=== PATIENT | female | born 1950 | race Hispanic/Latino ===

== ENCOUNTER 2017-10-29 10:17 | Emergency (ER) | payer SELFPAY ==
[~2017-10-29] VITALS: Ht 172.7 cm; Wt 115.2 kg
[~2017-10-29 10:17] MED LIST: B12 5,000 MCG1 EACH PO; CARVEDILOL3.125 MG PO; DIOVAN HCT 3201 EACH PO; FENOFIBRATE160 MG PO; FERROUS SULFAT325 MG PO; LANTUS 3ML100 UNITS/ SC; LASIX20 MG PO; LEVOTHYROXINE200 MCG PO; NOVOLOG MI100 UNIT/1 SC/PO; OMEPRAZOLE40 MG PO; SYMLINPEN2700 MCG/2 SC; [UNRECOGNIZED DRUG - OTHER] PO
[2017-10-29] MEDS ORDERED: HYDROCODONE/APAP 5MG-325MG TAB PO ONE (10:45)
--- NOTE | 2017-10-29 11:46 | Diagnostic Imaging Report ---
PROCEDURE:X-RAY PELVIS, AP VIEW COMPARISON:None. INDICATIONS:RIGHT POSTERIOR HIP PAIN FINDINGS: Limited by body habitus and demineralization. There are no displaced fractures, dislocations, lytic or blastic lesions. Degenerative changes of the hips and SI joints. The soft-tissues are unremarkable. CONCLUSION: No evidence of acute displaced fracture of the pelvis. If there is high clinical concern for fracture, consider obtaining CT for better evaluation. No evidence of hip dislocation. Dictated by: Shaun Winter M.D. on 10/29/2017 at 11:26 Electronically approved by: Shaun Winter M.D. on 10/29/2017 at 11:26
[2017-10-29 12:02] VITALS: BP 166/66
== END 2017-10-29 12:15 | disposition home or self-care (01) ==
LOC: ER 10:17
DX: S70.01XA Contusion of right hip, initial encounter (principal); W01.0XXA Fall on same level from slipping, tripping and stumbling without subsequent striking against object, initial encounter; Y93.01 Activity, walking, marching and hiking; Y92.238 Other place in hospital as the place of occurrence of the external cause; E11.65 Type 2 diabetes mellitus with hyperglycemia; I10 Essential (primary) hypertension
CPT/HCPCS: 36415; 72170; 82948; 99283

== ENCOUNTER 2018-05-07 15:41 | Inpatient (IN) | payer MEDICARE, OTHER ==
[~2018-05-07] VITALS: Ht 157.5 cm; Wt 123.6 kg
[2018-05-07] MEDS: INSULIN GLARGINE 100 UNITS/ML VIAL SQ SCH (01:00)
[2018-05-07] MEDS: INSULIN ASPART 70/30 100 UNITS/ML VIAL SC SCH (01:00)
--- OUTSIDE RECORDS SUMMARY | 2018-05-07 15:45 | XMS REPORT ---
Author Author [facility] Address Unknown Phone Unavailable Care Team Providers Care [employer] Name Role Phone ERNESTINE PARK Unavailable Unavailable Kym CR Unavailable Unavailable Problems This patient has no known problems. Allergies, Adverse Reactions, Alerts This patient has no known allergies or adverse reactions. Medications This patient has no known medications. Results Test Description Test Time Test Comments Text Results Atomic Results Result Comments US RENAL RETROPERITONEAL COMP 2017-11-20 13:00:00 [place] [address] Patient Name: CLYDE PRATHER MR #: [id number] : 1950 Age/Sex: 67/F Req #: [id number] Adm Physician: Ordered by: ERNESTINE PARK MD Report #: [id number] Location: Room/Bed: Procedure: [id number] US/US RENAL RETROPERITONEAL COMP Exam Date: 11/20/17 Exam Time: 1135 REPORT STATUS: Signed EXAM: Renal Ultrasound INDICATION: COMPARISON: None TECHNIQUE: Transverse and longitudinal images of the kidneys and bladder were obtained. FINDINGS: Right Kidney: Size: 12.0 cm, right renal cortex 1.7 cm. Appearance: Normal echogenicity. Collecting system: No hydronephrosis Stones: None Cyst/Mass: None Left Kidney: Size: 10.6 cm, left renal cortex 1.5 cm. Appearance: Normal echogenicity. Collecting system: No hydronephrosis Stones: None Cyst/Mass: 4.8 x 4.0 x 5.0 cm mostly exophytic cystic, anechoic lesion in the mid to inferior aspect Bladder: No focal lesions. No wall thickening. IMPRESSION: 1. Normal bilateral renal size and echogenicity. No hydronephrosis or obstruction. 2. 5.0 cm simple appearing cyst in the mid to inferior left kidney. Signed by: Dr. Tad Brannon M.D. on 11/20/2017 1:03 PM Dictated By: TAD BRANNON MD 07 Transcribed By: KAIN on 11/21/171507 COPY TO: ERNESTINE PARK MD US PELVIC (NON OB) DUARTE OR F/U 2017-11-20 13:00:00 [place] [address] Patient Name: CLYDE PRATHER MR #: [id number] : 1950 Age/Sex: 67/F Req #: [id number] Adm Physician: Ordered by: ERNESTINE PARK MD Report #: [id number] Location: Room/Bed: Procedure: [id number] US/US PELVIC (NON OB) DUARTE OR F/U Exam Date: 11/20/17 Exam Time: 1135 REPORT STATUS: Signed EXAM: Renal Ultrasound INDICATION: COMPARISON: None TECHNIQUE: Transverse and longitudinal images of the kidneys and bladder were obtained. FINDINGS: Right Kidney: Size: 12.0 cm, right renal cortex 1.7 cm. Appearance: Normal echogenicity. Collecting system: No hydronephrosis Stones: None Cyst/Mass: None Left Kidney: Size: 10.6 cm, left renal cortex 1.5 cm. Appearance: Normal echogenicity. Collecting system: No hydronephrosis Stones: None Cyst/Mass: 4.8 x 4.0 x 5.0 cm mostly exophytic cystic, anechoic lesion in the mid to inferior aspect Bladder: No focal lesions. No wall thickening. IMPRESSION: 1. Normal bilateral renal size and echogenicity. No hydronephrosis or obstruction. 2. 5.0 cm simple appearing cyst in the mid to inferior left kidney. Signed by: Dr. Tad Brannon M.D. on 11/20/2017 1:03 PM Dictated By: TAD BRANNON MD 07 Transcribed By: KAIN on 11/21/171507 COPY TO: ERNESTINE PARK MD PELVIS AP 1-2 VIEWS 2017-10-29 11:26:00 [place] [address] Patient Name: CLYDE PRATHER MR #: [id number] : 1950 Age/Sex: 67/F Req #: [id number] Adm Physician: Ordered by: JORDY CR MD Report #: [id number] Location: ER Room/Bed: Procedure: [id number] DX/PELVIS AP 1-2 VIEWS Exam Date: 10/29/17 Exam Time: 1040 REPORT STATUS: Signed PROCEDURE: X-RAY PELVIS, AP VIEW COMPARISON: None. INDICATIONS: RIGHT POSTERIOR HIP PAIN FINDINGS: Limited by body habitus and demineralization. There are no displaced fractures, dislocations, lytic or blastic lesions. Degenerative changes of the hips and SI joints. The soft-tissues are unremarkable. CONCLUSION: No evidence of acute displaced fracture of the pelvis. If there is high clinical concern for fracture, consider obtaining CT for better evaluation. No evidence of hip dislocation. Dictated by: Shaun Marcus M.D. on 10/29/2017 at 11:26 Electronically approved by: Shaun Marcus M.D. on 10/29/2017 at 11:26 Dictated By: SHAUN MARCUS MD 1126 Transcribed By: SOLOMON on 10/29/17 1126 COPY TO: JORDY CR MD
[2018-05-07] MEDS ORDERED: ACETAMINOPHEN 325 MG TAB PO NR (16:45)
[2018-05-07] MEDS: ALBUTEROL SULF 0.083% NEB SOLN 3 ML NEB NEB SCH ×3 (17:15→23:00)
--- NOTE | 2018-05-07 17:19 | Diagnostic Imaging Report ---
EXAMINATION: CXR 2 VIEW - HOPD INDICATION: Fever for 7 days ^[id number] ^1700 COMPARISON: None FINDINGS: PA and lateral views TUBES and LINES: None. LUNGS: Lungs are well inflated. Bilateral pulmonary edema. Patchy airspace opacities in both lung bases. PLEURA: No pleural effusion or pneumothorax. HEART AND MEDIASTINUM: Moderate enlargement of the cardiac silhouette. Mild atherosclerotic calcifications of the aortic arch. BONES AND SOFT TISSUES: No acute osseous lesion. Surgical clips along the right chest wall. UPPER ABDOMEN: No free air under the diaphragm. Right upper quadrant cholecystectomy clips. IMPRESSION: Bilateral lower lobes airspace opacities concerning for pneumonia. Recommend follow-up chest radiograph in 4-6 weeks. Cardiomegaly with associated bilateral mild pulmonary edema. Signed by: Dr. Sherry Howard M.D. on 05/07/2018 5:16 PM
[2018-05-07] MEDS ORDERED: CEFTRIAXONE SOD 1 GM VIAL IV SCH (17:45)
[2018-05-07] MEDS ORDERED: FUROSEMIDE INJ 10 MG/ML 4 ML VIAL IV NR (17:45)
[2018-05-07] MEDS ORDERED: SODIUM CHLORIDE FLUSH 10 ML SYR INJ PRN (17:45)
[2018-05-07] MEDS: VANCOMYCIN 1GM/NS 250 ML 250 ML IV SCH (18:00)
[2018-05-07] MEDS ORDERED: VITAMIN D1000 UNI1 PO (19:37)
[2018-05-07] MEDS ORDERED: LOSARTAN POTAS100 MG PO (19:37)
[2018-05-07] MEDS ORDERED: vascepa PO (19:37)
[2018-05-07] MEDS ORDERED: LEXAPRO10 MG PO (19:37)
[2018-05-07] MEDS ORDERED: ULTRAM50 MG PO (19:37)
[2018-05-07] MEDS ORDERED: PANTOPRAZOLE SO40 MG PO (19:37)
[2018-05-07] MEDS ORDERED: ALLOPURINOL300 MG PO (19:37)
[2018-05-07] MEDS ORDERED: AMLODIPINE BESY10 MG PO (19:37)
[2018-05-07] MEDS ORDERED: SENSIPAR30 MG PO (19:37)
[2018-05-07] MEDS ORDERED: HYDRALAZINE HCL25 MG PO (19:37)
[2018-05-07] MEDS ORDERED: ACETAMINOPHEN 325 MG TAB PO PRN (19:45)
[2018-05-07] MEDS ORDERED: TRAMADOL HCL 50 MG TAB PO PRN (19:45)
[2018-05-07] MEDS ORDERED: FUROSEMIDE INJ 10 MG/ML 4 ML VIAL IV SCH (21:00)
[2018-05-07] MEDS: HYDRALAZINE HCL 25 MG TAB PO SCH (22:10)
[2018-05-08] VITALS (10 sets, daily range): BP systolic 117–173; BP diastolic 55–74
--- NOTE | 2018-05-08 | NUR ---
Patient received via stretcher from [facility] accompanied by daughter. Admission history obtained and Initial physical assessment completed. Patient is AAO x 3.. No c/o pain. Telemetry, continuous pulse ox and 3L NC in place. Patient oriented to room, call light and plan of care. Fall precautions maintained. Patient instructed to call for assistance when needed. Call light within reach.
[2018-05-08] MEDS: ALBUTEROL/IPRATROPIUM 3 ML NEB NEB SCH ×4 (01:30→19:32)
[2018-05-08] MEDS: ALBUTEROL SULF 0.083% NEB SOLN 3 ML NEB NEB SCH ×6 (03:00→23:14)
[2018-05-08 04:55] LABS: BASOPHILS # (AUTO) 0.1 (0.0-0.1); BASOPHILS % 0.4 % (0.0-1.0); HEMATOCRIT 27.7 % (34.2-44.1); HEMOGLOBIN 9.1 g/dL (12.0-16.0); LYMPHOCYTES # (AUTO) 1.1 (1.0-3.2); LYMPHOCYTES % 8.3 % (18.0-39.1); MEAN CORPUSCULAR HEMOGLOBIN 30.2 pg (28-32); MEAN CORPUSCULAR HGB CONC 32.9 g/dL (31-35); MONOCYTES # (AUTO) 0.8 (0.2-0.8); MONOCYTES % 6.1 % (4.4-11.3); NEUTROPHILS # (AUTO) 11.3 (2.1-6.9); NEUTROPHILS % 84.5 % (38.7-80.0); PLATELET COUNT 236 x10e3/uL (140-360); RED BLOOD COUNT 3.01 x10e6/uL (3.6-5.1)
[2018-05-08 05:15] LABS: ALBUMIN 3.4 g/dL (3.5-5.0); ALBUMIN/GLOBULIN RATIO 1.1 (0.8-2.0); ANION GAP 12.8 mmol/L (8-16); CALCIUM 10.2 mg/dL (8.4-10.2); CREATININE, SERUM 2.16 mg/dL (0.57-1.11); POTASSIUM 3.8 mmol/L (3.5-5.1)
[2018-05-08] MEDS: FUROSEMIDE INJ 10 MG/ML 4 ML VIAL IV SCH ×2 (06:00→07:25)
--- NOTE | 2018-05-08 06:11 | History and Physical ---
CHIEF COMPLAINT: Fever and shaking chills. HISTORY OF PRESENT ILLNESS: This is a 68-year-old woman, who presents to [facility] with 3-4 day history of subjective fevers and shaking chills. The patient states she has had slight shortness of breath and a minimal cough also. In the emergency room, the patient was found to have oxygen saturation 89% on room air. The patient underwent chest x-ray in the emergency room, which revealed cardiomegaly with associated bilateral mild pulmonary edema as well as bilateral lower lobe airspace opacities. The patient was also found to have white blood cell count of 14,000 with 89% segmented neutrophils. The patient's hemoglobin is 10.3 g/dL. The patient also was found to have BUN and creatinine of 83 and 1.9 respectively, but she does have a known history of stage IV chronic kidney disease. The patient's potassium was 3.7. The patient's AST and ALT were 59 and 32 respectively, but she does have a history of fatty liver disease. The patient's B-type natriuretic peptid level was 67. The patient's urinalysis was unremarkable. The nasal swab for influenza A and B was also negative. The patient was admitted for further evaluation and treatment. REVIEW OF SYSTEMS: CONSTITUTIONAL: Weight has been stable. Fever and chills last 3-4 days. HEENT: No headaches. No visual changes. She complains of right ear pain and redness for the last week. CARDIOVASCULAR: Very slight shortness of breath and cough for the last 2 days. Denies any chest pain or tightness. GI: She vomited once this morning. No diarrhea. She does have chronic constipation. : No UTI symptoms. NEUROMUSCULAR: Denies any limb weakness or numbness. She has neuropathic type pain in her bilateral feet. ALLERGIES: 1. PENICILLIN. 2. CODEINE. PAST MEDICAL HISTORY: 1. Diabetic peripheral neuropathy. 2. Hypertensive heart disease. 3. Stage IV chronic kidney disease. 4. Chronic diastolic congestive heart failure. 5. Chronic bronchitis. 6. Extreme obesity. 7. History of breast cancer. PAST SURGICAL HISTORY: 1. Cholecystectomy. 2. Appendectomy. 3. Right mastectomy secondary to breast cancer. 4. Right ankle surgery. 5. Left breast surgery. SOCIAL HISTORY: This woman is . She lives with her . No history of tobacco or alcohol use. FAMILY HISTORY: Numerous family members with type 2 diabetes mellitus. MEDICATIONS: The patient's home medications: 1. Fenofibrate 160 mg daily. 2. Platina-3 fish oil 2000 mg b.i.d. 3. Hydralazine 100 mg t.i.d. 4. Lexapro 20 mg daily. 5. Carvedilol 3.125 mg b.i.d. 6. Amlodipine 10 mg b.i.d. 7. Levothyroxine 125 mcg daily. 8. Vitamin D3 2000 units daily. 9. Nephro-Butch one daily. 10. Allopurinol 300 mg daily. 11. Vitamin B12 1000 mcg daily. 12. Acetaminophen 650 mg every 6 hours p.r.n. fever. 13. Cinacalcet 30 mg daily. 14. Tramadol 50 mg b.i.d. p.r.n. pain. 15. Losartan 50 mg daily. 16. Linaclotide 145 mcg daily. 17. Zyrtec 10 mg daily. 18. Furosemide 40 mg b.i.d. 19. SymlinPen 120 mcg t.i.d. with meals. 20. Toujeo insulin 55 units daily. 21. Humalog insulin or NovoLog insulin 55 units with breakfast, 55 units with lunch, 60 units with dinner. PHYSICAL EXAMINATION: GENERAL: On exam, she is awake, alertand fully oriented. VITAL SIGNS: Height 5 feet 2 inches, weight is 254 pounds, BMI of 46, oxygen saturation is 89% on room air, currently she is on 96% on 2 liters oxygen, blood pressure is 157/69, temperature 100.6, currently earlier it was 102.8, heart rate is in the 90s, and respiratory rate 16. INTEGUMENTARY: Skin is warm and dry. No pallor jaundice or diaphoresis. HEENT: Anicteric sclerae. Moist mucous membranes. The patient's right pinna is erythematous, swollen and very tender to touch. She also has surrounding erythema in the perirectal area consistent with cellulitis. NECK: Supple. No evidence of jugular venous distention. CARDIOVASCULAR: Distant heart sounds. Regular rate and rhythm with a systolic ejection murmur 2/6 in intensity with S3 gallop. LUNGS: Diminished breath sounds bibasilarly. ABDOMEN: Obese. EXTREMITIES: No edema or deformity. NEUROLOGIC: No gross focal deficits. The patient has decreased pinprick sensation to plantar aspect of bilateral feet. DIAGNOSES: 1. Sepsis secondary to bilateral pneumonia. 2. Right periauricular/facial cellulitis. 3. Acute on chronic diastolic congestive heart failure. 4. Stage IV chronic kidney disease. 5. Hypertensive heart disease. 6. Chronic bronchitis. 7. Type 2 diabetes mellitus. 8. Obstructive sleep apnea. 9. Anemia secondary to chronic kidney disease. PLAN: 1. Blood cultures. 2. Intravenous vancomycin and cefepime. 3. Intravenous furosemide. 4. Blood glucose monitor and control. 5. Consult Cardiology. 6. Order echocardiogram. I spent an hour in the care of this patient. MD BARBI Tello/MERCEDES /[id number] MTDD
[2018-05-08] MEDS: LEVOTHYROXINE SODIUM 50 MCG TAB PO SCH (06:20)
--- NOTE | 2018-05-08 07:21 | NUR ---
Dr. Edna Collins made aware of "Routine Consult: Acute on Chronic diastolic CHF.
[2018-05-08] MEDS: SYMLIN SC SCH ×3 (08:00→17:00)
[2018-05-08] MEDS ORDERED: LOSARTAN POTASSIUM 100 MG TAB PO SCH (09:00)
[2018-05-08] MEDS: INSULIN GLARGINE 100 UNITS/ML VIAL SQ SCH ×2 (09:00→21:00)
[2018-05-08] MEDS: [UNRECOGNIZED DRUG - OTHER] PO SCH (09:00)
[2018-05-08] MEDS: INSULIN ASPART 70/30 100 UNITS/ML VIAL SC SCH ×3 (09:05→21:00)
[2018-05-08] MEDS: PANTOPRAZOLE SOD 40 MG TABEC PO SCH (09:05)
[2018-05-08] MEDS: CARVEDILOL 3.125 MG TAB PO SCH ×2 (09:06→17:44)
[2018-05-08] MEDS: FERROUS SULFATE 325 MG TAB PO SCH (09:06)
[2018-05-08] MEDS: AMLODIPINE BESYLATE 10 MG TAB PO SCH (09:06)
[2018-05-08] MEDS: FENOFIBRATE 145 MG TAB PO SCH (09:06)
[2018-05-08] MEDS: CINACALCET 30 MG TAB PO SCH (09:06)
[2018-05-08] MEDS: ESCITALOPRAM OXALATE 10 MG TAB PO SCH (09:06)
[2018-05-08] MEDS: HYDRALAZINE HCL 25 MG TAB PO SCH ×3 (09:06→21:00)
[2018-05-08] MEDS: ALLOPURINOL 300 MG TAB PO SCH (09:07)
[2018-05-08] MEDS: CEFEPIME 1GM/NS 0.9% 50 ML 50 ML IV SCH (09:32)
[2018-05-08] MEDS ORDERED: SODIUM CHLORIDE 0.9% 1000ML 1,000 ML ONE (09:44)
[2018-05-08] MEDS: SODIUM CHLORIDE 0.9% 1000ML 1,000 ML IV SCH (10:11)
[2018-05-08] MEDS: PERMETHRIN 5% CREAM 60 GM TUBE TOP SCH (12:54)
--- NOTE | 2018-05-08 16:29 | NUR ---
CASE MANAGEMENT ASSESSMENT Physical Therapy Instructor to bedside to discuss plan of care with patient/family. CM/SW role and care transitions discussed. Anticipated discharge plan discussed along with duration of care. CM/SW discussed patients right to make decisions in care. CM/SW work hours given. Patient lives: with Leighton Lucio Admit/Transfer: thru ED Hospital/ER visits since last admit: none POA/Emergency contact: daughters Marely Pillai [phone] and Yasmeen Guerin [phone] Current/Previous Home Health: none PCP/Follow-up Care: Dr. Flores; advised pt to follow up with MD within 7 days of discharge or as instructed by MD Current/Previous DME: CPAP Medications (referring to index hospitalization or the first time you were in the hospital) a. Were changes made in your medications when you were in the hospital on [date of index hospitalization]? n/a b. Did you understand the changes? n/a c. Were you able to obtain your new medications right away? n/a d. Were you able to take your medications like the doctor wanted you to? n/a e. Did the hospital give you an accurate, easy to understand list of medications when you left? n/a Scale of 1-10 how comfortable does patient feel with disease management in outpatient settin Other Services: none Employment Status: retired Areas of Concerns: pneumonia, pulmonary edema Referral Needs: none Education Needs: medical management IMM/DUMONT given and signed (if applicable): IMM letter delivered and explained to pt. Signed copy in chart. Sinhala copy provided to pt. Goal for discharge: home Pt states MD said possible discharge tomorrow. CM/SW left business card at the bedside with contact information. Name and number was also written on the patients whiteboard. Patient verbalized understanding of discussion. CM will follow-up with ongoing discharge and transition of care needs.
[2018-05-08] MEDS: VANCOMYCIN 1GM/NS 250 ML 250 ML IV SCH (16:58)
--- NOTE | 2018-05-08 17:38 | Consultation ---
DATE OF CONSULTATION: 05/08/2018 REASON FOR CONSULTATION: Pulmonary edema, CHF. CHIEF COMPLAINT: Fever, chills. HISTORY OF PRESENT ILLNESS: This is a 68-year-old female with history of COPD, chronic kidney disease, history of left heart catheterization in May 2011 showing 50% RCA disease and EF of 70%, anemia, history of GI bleed in 2008, diabetes, hypertension, hypercholesterolemia, peripheral neuropathy, hypothyroidism, reflux, breast cancer, venous insufficiency. The patient presents to [facility] ER with apparently complaints of several-week history of coughing, fever, chills; however, in the past 3 to 4 days, fevers and chills worsened with shortness of breath and cough, so the patient came to the ER for further evaluation. The patient had an x-ray done, which showed bilateral lower lobe opacities concerning for pneumonia and some mild pulmonary edema. BNP was in 100s. Cardiology was consulted. The patient was seen in room, in no acute distress, reports that her shortness of breath is much better. The patient denies any chest pains, any orthopnea or any PND. Does have intermittent lower extremity edema. PAST MEDICAL HISTORY: COPD on home oxygen, chronic kidney disease stage 4, breast cancer, status post left heart catheterization in 2011 showing a 50% RCA disease and EF about 70%, anemia, history of GI bleed, diabetes, hypertension, hypercholesterolemia, peripheral neuropathy, hypothyroidism, reflux, venous insufficiency. PAST SURGICAL HISTORY: Appendectomy, cholecystectomy, right mastectomy, bilateral cataract surgery. FAMILY HISTORY: Apparently, her mother in her 80s with apparently history of pulmonary disease. Father at the age of 59, apparently complications of CVA and [place]. Does report one sister with heart disease, who lives in [place]. SOCIAL HISTORY: She is . 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 She denies any alcohol use or tobacco use. ALLERGIES: PENICILLIN, CODEINE. REVIEW OF SYSTEMS: GENERAL: Denies any weight changes, any fatigue; however, positive for weakness, fevers, chills and night sweats. SKIN: Denies any rashes or sores. HEENT: Denies any headaches, any nausea, vomiting, vision change, blurred vision, double vision, any earaches, any stuffiness, epistaxis. Positive for sore throat. Denies any hoarseness. CARDIAC: Denies any chest pain. Positive for dyspnea on exertion. Denies any orthopnea, PND. However, positive for intermittent lower extremity edema. RESPIRATORY: Positive for shortness of breath. Positive for cough, yellowish to mirza in nature. Denies any wheezing or hemoptysis. GI: Reports a good appetite. Denies any nausea or vomiting, any bleeding, hematemesis, any melena, any hematochezia URINARY: Denies any frequency, urgency, dysuria, or hematuria. VASCULAR: Positive for intermittent lower extremity edema. Positive for varicose veins. NEUROLOGIC: Positive for numbness, tingling in lower extremities. Denies any weakness, paralysis, fainting, blackout seizures. HEMATOLOGIC: Positive for anemia. Denies any bruising. ENDOCRINE: Denies any heat or cold intolerance, any polyuria, polydipsia, or polyphagia. PHYSICAL EXAMINATION: VITAL SIGNS: Temperature 99.6, pulse 66, respiratory rate 18, blood pressure 131/60, pulse ox 99% on 3 L nasal cannula. GENERAL: Appears stated age, reliable informant, in no acute distress. SKIN: No rashes or bruises noted. HEENT: Normocephalic. Pupils equal and reactive. Extraocular movements are intact. Oral mucosa pink. NECK: Trachea midline. No JVD. No carotid bruit noted. HEART: Regular rate and rhythm. Soft systolic murmur heard in the right upper sternal border. LUNGS: Bilateral breath sounds at the bases with crackles and rhonchi. Poor airway entry and exit. ABDOMEN: Soft, nontender, nondistended. No organomegaly noted. MUSCULOSKELETAL: Good muscle strength throughout. VASCULAR: +2 bilateral radial pulses, +1 DP/PT pulses bilaterally. Trace edema. NEUROLOGIC: Cranial nerves II through XII seem intact. LABORATORY DATA: White count 13, hemoglobin 9.1, hematocrit 27, and platelets 236. Chemistry; sodium 135, potassium 3.8, bicarb 27, BUN 80, creatinine 2.1, glucose 256. BNP 145. TSH 0.6. IMAGING DATA: Chest x-ray showing bilateral lower lobe opacities and mild pulmonary edema. EKG showing sinus rhythm with right bundle-branch block and inverted T- waves in the inferior lateral leads. ASSESSMENT: 1. Pneumonia. 2. Hypertension. 3. Chronic kidney disease stage 4. 4. Diastolic congestive heart failure. 5. Diabetes. 6. Hyperlipidemia. 7. Obesity. PLAN: 1. The patient presents with fevers, chills, noted bilateral opacities on chest x-rays, being on therapy for pneumonia, reports she feels much better now. BNP only 145, so doubt heart failure. We will go ahead and do an echo just to evaluate heart function and structure. 2. Continue home antihypertensives, beta-bright, hydralazine. Would avoid any KIRSTEN or ARBs given her kidney function. 3. Continue telemonitoring. 4. We will continue to monitor the patient and adjust cardiac therapy as clinic course dictates. Thank you very much for this consult. Dictated by Reagan Jarvis NP SEEN AND EXAMINED AGREE WITH NOTE Francoise Collins MD DC/MERCEDES /[id number] PHU
--- NOTE | 2018-05-08 18:38 | Consultation ---
DATE OF CONSULTATION: REASON FOR CONSULTATION: Acute on chronic kidney disease stage 4. HISTORY OF PRESENT ILLNESS: The patient is a pleasant 68-year-old female with past medical history of diabetes type 2 since 1989, hypertension, CKD stage [address] Power as an outpatient, last creatinine from April 2018 was 1.8, chronic diastolic CHF, chronic bronchitis, history of breast cancer, and obesity, was admitted with fever and chills. The patient was found to have bilateral pneumonia. The patient was started on IV antibiotics. Also, the patient was found to be in acute kidney injury with creatinine of 2.16. Lasix was put on hold and the patient was started on IV fluids. Per the patient, she had vomited yesterday, but this morning, she was able to keep her breakfast down. No history of any NSAIDs. PAST MEDICAL HISTORY: As above. PAST SURGICAL HISTORY: Cholecystectomy, appendectomy, right mastectomy secondary to breast cancer, right ankle surgery, and left breast surgery. SOCIAL HISTORY: Lives at home with her . No history of tobacco, alcohol, or illicit drug abuse. FAMILY HISTORY: Positive for diabetes. ALLERGIES: PENICILLIN AND CODEINE. MEDICATIONS: Currently, the patient is on albuterol neb treatment, cefepime, allopurinol, cinacalcet, fenofibrate, normal saline at 100 mL an hour, amlodipine, ferrous sulfate, insulin, carvedilol, hydralazine, pantoprazole, Tylenol p.r.n., levothyroxine, tramadol p.r.n., and insulin and vancomycin 1 g IV q.24 hours. REVIEW OF SYSTEMS: GENERAL: Positive fever. Positive chills. HEENT: No headache. No blurry vision. NECK: No dysphagia. CARDIOVASCULAR: No chest pain. No PND. No orthopnea. RESPIRATORY: Positive cough. No hemoptysis. GI: Had nausea and vomiting yesterday, but better today. No abdominal pain. No hematemesis. No melena. No diarrhea. MUSCULOSKELETAL: No ankle swelling. GENITOURINARY: No urinary urgency, frequency, or hesitancy. NEUROLOGIC: No numbness or tingling. SKIN: No new rash. PHYSICAL EXAMINATION: VITAL SIGNS: Blood pressure 131/60, pulse of 66, temperature 99.6, respirations 18, 99% on 2 L nasal cannula. GENERAL: The patient is awake and alert, not in apparent distress. HEENT: PERRLA. Extraocular movements intact. NECK: No JVD. HEART: S1 and S2. LUNGS: Bilateral basilar crackles. ABDOMEN: Soft. Bowel sound positive. EXTREMITIES: No edema. NEUROLOGIC: No focal deficits. SKIN: No new rash. LABORATORY DATA: White count 13.3, hemoglobin 9.1, platelet count is 236. Sodium 135, potassium 3.8, chloride 99, CO2 of 27, BUN 80, creatinine 2.16, glucose 256. BNP is 145. TSH 0.62. Albumin 3.4. Blood culture and urine culture pending. Chest x-ray done on admission; cardiomegaly, bilateral mild pulmonary edema, bilateral lower lobe air space opacity concerning for pneumonia. ASSESSMENT AND PLAN: 1. Acute on chronic kidney disease stage 4. Baseline creatinine 1.8 earlier this month, likely prerenal from pneumonia. I agree with holding Lasix for now and continue with the IV fluids. Check the lab in the morning. If the patient is able to tolerate her diet today and no nausea and vomiting, we will discontinue IV fluids in the morning. Avoid all nephrotoxic medications. 2. Pneumonia. Continue with the antibiotics. Monitor the vancomycin level closely. 3. Diabetes type 2. Per primary. 4. Hypertension, controlled. I want to thank Dr. Flores for the consult. We will follow the patient with you. Marycruz Caraballo MD AFS/MODL /[id number]
[2018-05-09] VITALS (8 sets, daily range): BP systolic 109–145; BP diastolic 51–68
[2018-05-09] MEDS: ALBUTEROL SULF 0.083% NEB SOLN 3 ML NEB NEB SCH ×5 (01:28→19:45)
[2018-05-09] MEDS: ALBUTEROL/IPRATROPIUM 3 ML NEB NEB SCH ×4 (01:28→19:45)
[2018-05-09] MEDS: SODIUM CHLORIDE 0.9% 1000ML 1,000 ML IV SCH ×3 (02:31→16:20)
[2018-05-09 05:05] LABS: BASOPHILS % 0.4 % (0.0-1.0); HEMATOCRIT 28.1 % (34.2-44.1); HEMOGLOBIN 9.1 g/dL (12.0-16.0); LYMPHOCYTES # (AUTO) 1.5 (1.0-3.2); LYMPHOCYTES % 21.6 % (18.0-39.1); MEAN CORPUSCULAR HEMOGLOBIN 30.3 pg (28-32); MEAN CORPUSCULAR HGB CONC 32.4 g/dL (31-35); MEAN CORPUSCULAR VOLUME 93.7 fL (81-99); MONOCYTES # (AUTO) 0.8 (0.2-0.8); MONOCYTES % 11.6 % (4.4-11.3); NEUTROPHILS # (AUTO) 4.7 (2.1-6.9); NEUTROPHILS % 66.1 % (38.7-80.0); PLATELET COUNT 232 x10e3/uL (140-360)
[2018-05-09 05:44] LABS: ALBUMIN 3.1 g/dL (3.5-5.0); ANION GAP 11.6 mmol/L (8-16); CALCIUM 9.7 mg/dL (8.4-10.2); CREATININE, SERUM 2.1 mg/dL (0.57-1.11); POTASSIUM 3.6 mmol/L (3.5-5.1)
[2018-05-09 06:07] LABS: THYROID STIMULATING HORMONE 2.443 uIU/mL (0.350-4.940)
[2018-05-09 06:13] LABS: CHOL/HDL RATIO 3.8 (3.0-3.6)
[2018-05-09] MEDS: LEVOTHYROXINE SODIUM 50 MCG TAB PO SCH (06:15)
--- NOTE | 2018-05-09 06:54 | Diagnostic Imaging Report ---
EXAMINATION: CHEST SINGLE (PORTABLE) COMPARISON: Chest x-ray 05/07/2018 INDICATION: Pneumonia, CHF ^pneumonia and CHF ^[id number] ^0630 ^Y DISCUSSION: Frontal view of the chest obtained at 0635 hours. HEART AND MEDIASTINUM: Stable cardiomegaly. Pulmonary arteries are enlarged. Stable pulmonary venous enlargement. LINES: None. LUNGS: Bibasilar airspace opacities are similar. No new pulmonary findings. No interstitial edema. PLEURA: No pleural effusion or pneumothorax. BONES AND SOFT TISSUES: No focal osseous lesion. Stable surgical clips in the right axilla. IMPRESSION: Stable cardiomegaly and vascular congestion. Pulmonary artery hypertension is suspected. Bibasilar airspace opacities are stable, either atelectasis or pneumonia. Signed by: Dr. Viviane Garza MD on 05/09/2018 6:50 AM
[2018-05-09] MEDS: SYMLIN SC SCH ×3 (08:00→16:20)
[2018-05-09] MEDS: PANTOPRAZOLE SOD 40 MG TABEC PO SCH (08:50)
[2018-05-09] MEDS: CEFEPIME 1GM/NS 0.9% 50 ML 50 ML IV SCH (08:50)
[2018-05-09] MEDS: CARVEDILOL 3.125 MG TAB PO SCH ×2 (08:51→16:48)
[2018-05-09] MEDS: FENOFIBRATE 145 MG TAB PO SCH (08:51)
[2018-05-09] MEDS: AMLODIPINE BESYLATE 10 MG TAB PO SCH (08:51)
[2018-05-09] MEDS: HYDRALAZINE HCL 25 MG TAB PO SCH ×3 (08:51→21:00)
[2018-05-09] MEDS: FERROUS SULFATE 325 MG TAB PO SCH (08:51)
[2018-05-09] MEDS: INSULIN ASPART 70/30 100 UNITS/ML VIAL SC SCH ×3 (08:51→21:00)
[2018-05-09] MEDS: CINACALCET 30 MG TAB PO SCH (08:51)
[2018-05-09] MEDS: ALLOPURINOL 300 MG TAB PO SCH (08:51)
[2018-05-09] MEDS: ESCITALOPRAM OXALATE 10 MG TAB PO SCH (08:51)
[2018-05-09] MEDS: [UNRECOGNIZED DRUG - OTHER] PO SCH (08:51)
[2018-05-09] MEDS: INSULIN GLARGINE 100 UNITS/ML VIAL SQ SCH ×2 (08:51→22:12)
[2018-05-09] MEDS: PERMETHRIN 5% CREAM 60 GM TUBE TOP SCH (08:52)
--- NOTE | 2018-05-09 12:14 | NUR ---
MD DELANEY- DR. TIFFANIE Montesinos Pending Denial: Lack of medical necessity Fax: 05/07/18 admission pending Denial Rationale: based on clinical received does not meet inpatient level of care guidelines and may require review by [facility] Nurse. Please discuss and consider OBS as alternate level of care and call Yaneli by 10am 05/09/18 Ref#[id number] A peer to peer interaction is available if you do not agree with OBS. Please call [phone] opt. 4 to schedule a P2P with an [facility] Nurse by 10a 05/09/18 VEHICLE INSPECTOR. CM: Yaneli Benitez P: [phone] F: [phone]
[2018-05-09] MEDS: TRIAMCINOLONE ACET 0.025% 15 GM CREAM TP SCH ×2 (16:48→21:17)
[2018-05-09] MEDS: VANCOMYCIN 1GM/NS 250 ML 250 ML IV SCH (16:48)
[2018-05-10] VITALS (8 sets, daily range): BP systolic 136–164; BP diastolic 64–77
[2018-05-10] MEDS: ALBUTEROL/IPRATROPIUM 3 ML NEB NEB SCH ×4 (00:50→19:40)
[2018-05-10] MEDS: ALBUTEROL SULF 0.083% NEB SOLN 3 ML NEB NEB SCH ×5 (00:50→15:00)
[2018-05-10 04:53] LABS: BASOPHILS % 0.7 % (0.0-1.0); EOSINOPHILS % 0.9 % (0.0-6.0); HEMATOCRIT 27.3 % (34.2-44.1); HEMOGLOBIN 8.8 g/dL (12.0-16.0); LYMPHOCYTES # (AUTO) 1.3 (1.0-3.2); LYMPHOCYTES % 29.5 % (18.0-39.1); MEAN CORPUSCULAR HEMOGLOBIN 30.6 pg (28-32); MEAN CORPUSCULAR HGB CONC 32.2 g/dL (31-35); MEAN CORPUSCULAR VOLUME 94.8 fL (81-99); MONOCYTES # (AUTO) 0.6 (0.2-0.8); NEUTROPHILS # (AUTO) 2.4 (2.1-6.9); NEUTROPHILS % 54.4 % (38.7-80.0); PLATELET COUNT 213 x10e3/uL (140-360); RED BLOOD COUNT 2.88 x10e6/uL (3.6-5.1); RED CELL DISTRIBUTION WIDTH 15.9 % (11.7-14.4)
[2018-05-10 05:14] LABS: ANION GAP 8.8 mmol/L (8-16); CALCIUM 9.7 mg/dL (8.4-10.2); CREATININE, SERUM 1.9 mg/dL (0.57-1.11); POTASSIUM 3.8 mmol/L (3.5-5.1)
--- NOTE | 2018-05-10 05:50 | NUR ---
patient BG 34, asymptomatic. Provided 8 oz juice and chocolate pudding, will recheck BG in 30min. Will notify Dr. Flores.
[2018-05-10] MEDS: LEVOTHYROXINE SODIUM 50 MCG TAB PO SCH (06:28)
[2018-05-10] MEDS: SODIUM CHLORIDE 0.9% 1000ML 1,000 ML IV SCH ×3 (06:28→22:15)
--- NOTE | 2018-05-10 06:29 | NUR ---
BG 73, patient asymptomatic.
[2018-05-10] MEDS: PANTOPRAZOLE SOD 40 MG TABEC PO SCH (07:30)
[2018-05-10] MEDS: SYMLIN SC SCH ×3 (08:00→16:16)
[2018-05-10] MEDS: CEFEPIME 1GM/NS 0.9% 50 ML 50 ML IV SCH (08:00)
[2018-05-10] MEDS: INSULIN ASPART 70/30 100 UNITS/ML VIAL SC SCH ×3 (09:00→21:00)
[2018-05-10] MEDS: [UNRECOGNIZED DRUG - OTHER] PO SCH (09:00)
[2018-05-10] MEDS: INSULIN GLARGINE 100 UNITS/ML VIAL SQ SCH ×2 (09:00→21:00)
[2018-05-10] MEDS: TRIAMCINOLONE ACET 0.025% 15 GM CREAM TP SCH ×3 (09:43→21:00)
[2018-05-10] MEDS: ESCITALOPRAM OXALATE 10 MG TAB PO SCH (09:44)
[2018-05-10] MEDS: CINACALCET 30 MG TAB PO SCH (09:44)
[2018-05-10] MEDS: FENOFIBRATE 145 MG TAB PO SCH (09:44)
[2018-05-10] MEDS: ALLOPURINOL 300 MG TAB PO SCH (09:44)
[2018-05-10] MEDS: FERROUS SULFATE 325 MG TAB PO SCH (09:44)
[2018-05-10] MEDS: AMLODIPINE BESYLATE 10 MG TAB PO SCH (09:44)
[2018-05-10] MEDS: CARVEDILOL 3.125 MG TAB PO SCH ×2 (09:45→16:15)
[2018-05-10] MEDS: HYDRALAZINE HCL 25 MG TAB PO SCH ×3 (09:45→21:44)
--- NOTE | 2018-05-10 15:23 | NUR ---
IMM letter delivered and explained to pt. Signed copy placed in chart. Copy to pt.
[2018-05-10] MEDS: VANCOMYCIN 1GM/NS 250 ML 250 ML IV SCH (17:12)
--- NOTE | 2018-05-10 22:15 | NUR ---
IV #22 GAUGE INSERTED TO THE LEFT UPPER ARM, PROCEDURE TOLERATED WELL. IV FLUID INFUSING ORDERED. PATIENT ASSISTED WITH ADLS, CALL LIGHT WITHIN EASY REACH, SHE'S INSTRUCTED TO CALL FOR ASSISTANCE NEEDED.
[2018-05-11] VITALS (7 sets, daily range): BP systolic 131–163; BP diastolic 63–71
[2018-05-11] MEDS: ALBUTEROL/IPRATROPIUM 3 ML NEB NEB SCH ×4 (01:18→18:45)
--- NOTE | 2018-05-11 02:00 | NUR ---
PATIENT JUST GOT THROUGH USING THE BEDSIDE COMMODE, SHE'S SITTING UP AT THE SIDE OF THE BED. NO ACUTE DISTRESS OBSERVED AND SHE DENIES PAIN. CALL LIGHT WITHIN EASY REACH, INSTRUCTED TO CALL FOR ASSISTANCE UPON GETTING OUT OF THE BED.
[2018-05-11 05:22] LABS: BASOPHILS % 0.4 % (0.0-1.0); EOSINOPHILS % 0.4 % (0.0-6.0); HEMATOCRIT 28.2 % (34.2-44.1); LYMPHOCYTES # (AUTO) 1.3 (1.0-3.2); LYMPHOCYTES % 27.8 % (18.0-39.1); MEAN CORPUSCULAR HEMOGLOBIN 30.1 pg (28-32); MEAN CORPUSCULAR HGB CONC 31.9 g/dL (31-35); MEAN CORPUSCULAR VOLUME 94.3 fL (81-99); MONOCYTES # (AUTO) 0.5 (0.2-0.8); MONOCYTES % 11.5 % (4.4-11.3); NEUTROPHILS # (AUTO) 2.8 (2.1-6.9); NEUTROPHILS % 59.7 % (38.7-80.0); PLATELET COUNT 238 x10e3/uL (140-360); RED BLOOD COUNT 2.99 x10e6/uL (3.6-5.1); RED CELL DISTRIBUTION WIDTH 15.9 % (11.7-14.4)
[2018-05-11 05:44] LABS: ALBUMIN 3.2 g/dL (3.5-5.0); ALBUMIN/GLOBULIN RATIO 0.9 (0.8-2.0); ANION GAP 10.9 mmol/L (8-16); CALCIUM 10.4 mg/dL (8.4-10.2); CREATININE, SERUM 1.41 mg/dL (0.57-1.11); POTASSIUM 3.9 mmol/L (3.5-5.1)
--- NOTE | 2018-05-11 05:52 | Diagnostic Imaging Report ---
EXAMINATION: CHEST SINGLE (PORTABLE) COMPARISON: 05/09/2018 INDICATION: ^bilateral pneumonia ^[id number] ^0540 ^Y DISCUSSION: Frontal view of the chest obtained at 0527 hours. HEART AND MEDIASTINUM: Stable cardiomegaly LINES: None. LUNGS: Pulmonary vascular markings have increased and are indistinct. The left diaphragm is poorly visualized. No confluent infiltrates in the right lung PLEURA: Small left pleural effusion cannot be excluded. No pneumothorax. BONES AND SOFT TISSUES: No focal osseous lesion. Surgical clips in the right axilla are stable. IMPRESSION: Worsening pulmonary vascular congestion. Left basilar atelectasis or infiltrate. Small left pleural effusion cannot be excluded. Signed by: Dr. Viviane Garza MD on 05/11/2018 5:48 AM
--- NOTE | 2018-05-11 06:55 | NUR ---
LAB CALLED WITH GLUCOSE LEVEL OF 39; UPON ASSESSMENT THE PATIENT WAS COHERENT WITH NO S/S OF HYPOGLYCEMIA NOTED. TWO CUPS OF APPLE JUICE WAS GIVEN, BLOOD SUGAR FINGER STICK WAS CHECKED WITH RESULT OF 89.
[2018-05-11] MEDS: PANTOPRAZOLE SOD 40 MG TABEC PO SCH (07:28)
[2018-05-11] MEDS: LEVOTHYROXINE SODIUM 50 MCG TAB PO SCH (07:28)
[2018-05-11] MEDS: SYMLIN SC SCH ×3 (08:00→17:00)
[2018-05-11] MEDS: CINACALCET 30 MG TAB PO SCH (08:35)
[2018-05-11] MEDS: FERROUS SULFATE 325 MG TAB PO SCH (08:35)
[2018-05-11] MEDS: [UNRECOGNIZED DRUG - OTHER] PO SCH (08:35)
[2018-05-11] MEDS: CARVEDILOL 3.125 MG TAB PO SCH ×2 (08:35→18:14)
[2018-05-11] MEDS: AMLODIPINE BESYLATE 10 MG TAB PO SCH (08:35)
[2018-05-11] MEDS: ESCITALOPRAM OXALATE 10 MG TAB PO SCH (08:35)
[2018-05-11] MEDS: HYDRALAZINE HCL 25 MG TAB PO SCH ×3 (08:35→21:19)
[2018-05-11] MEDS: SODIUM CHLORIDE 0.9% 1000ML 1,000 ML IV SCH (08:35)
[2018-05-11] MEDS: CEFEPIME 1GM/NS 0.9% 50 ML 50 ML IV SCH (08:35)
[2018-05-11] MEDS: TRIAMCINOLONE ACET 0.025% 15 GM CREAM TP SCH ×3 (08:36→21:20)
[2018-05-11] MEDS: FENOFIBRATE 145 MG TAB PO SCH (08:36)
[2018-05-11] MEDS: ALLOPURINOL 300 MG TAB PO SCH (08:36)
[2018-05-11] MEDS: INSULIN ASPART 70/30 100 UNITS/ML VIAL SC SCH ×3 (09:00→21:19)
[2018-05-11] MEDS: INSULIN GLARGINE 100 UNITS/ML VIAL SQ SCH ×2 (09:00→21:20)
[2018-05-11] MEDS ORDERED: FUROSEMIDE 40 MG TAB PO SCH (18:00)
[2018-05-11] MEDS: VANCOMYCIN 1GM/NS 250 ML 250 ML IV SCH (18:14)
--- NOTE | 2018-05-11 18:58 | Progress Note ---
DATE: Internal Medicine Progress Note SUBJECTIVE: The patient is complaining of swelling in the legs. OBJECTIVE: VITAL SIGNS: Blood pressure 153/70, temperature 96.7, heart rate 70 per minute, respiratory rate is 20 per minute, and oxygen saturation 98%. HEART: Showed regular rhythm. No murmur or added sounds. LUNGS: Clear bilaterally except for the bases, which have bilateral crackles. ABDOMEN: Soft. EXTREMITIES: Show 2+ bilateral pedal edema. LABORATORY DATA: BMP; sodium 141, potassium 3.9, chloride 109, CO2 25, BUN 53, creatinine 1.41, glucose 79. CBC; white blood count 4.71, hemoglobin 9.0, hematocrit 28.2, and platelet count 258,000. AST 24, ALT 22, total bilirubin 0.3, and alkaline phosphatase 43. FINAL IMPRESSION: 1. Lobar pneumonia. 2. Chronic renal failure, stage 3. 3. Chronic diastolic congestive heart failure. 4. Hypertension with hypertensive nephropathy and hypertensive heart disease with congestive heart failure. 5. Morbid obesity. PLAN OF TREATMENT: Continue albuterol and Atrovent q.6 hours, vancomycin 1 g IV once a day, Cefepime 1 mg IV once a day, carvedilol 3.125 mg twice a day, hydralazine 100 mg three times a day, Protonix 40 mg daily. Continue with Humalog 50 units three times a day with meals, Celexa 20 mg daily, tramadol 50 mg twice a day, levothyroxine 50 mcg daily, triamcinolone cream three times a day, allopurinol 600 mg daily, cinacalcet 30 mg daily, fenofibrate 145 mg daily, furosemide 40 mg IV twice a day. Continue amlodipine 10 mg daily, ferrous sulfate 325 mg daily. Continue with Humalog 80 units twice a day. MD RIRI Aragon/MERCEDES /[id number]
--- NOTE | 2018-05-11 19:04 | Progress Note ---
DATE: Internal Medicine Progress Note ADDENDUM: She also has uncontrolled diabetes mellitus type 2 with chronic venous insufficiency. Continue her Lantus and Humalog. MD RIRI Aragon/MODL /[id number]
--- NOTE | 2018-05-11 20:40 | NUR ---
PATIENT ASSISTED TO THE BEDSIDE COMMODE, CALL LIGHT WITHIN EASY REACH, SHE'S INSTRUCTED TO CALL FOR ASSISTANCE UPON COMPLETION.
[2018-05-11] MEDS: FUROSEMIDE INJ 10 MG/ML 4 ML VIAL IV SCH (21:18)
--- NOTE | 2018-05-11 22:55 | NUR ---
PATIENT ASSISTED WITH ADLS, SHE'S IN BED WITH HER C-PAP ON. NO RESPIRATORY DISTRESS OBSERVED, CALL LIGHT WITHIN EASY REACH.
[2018-05-12] VITALS (7 sets, daily range): BP systolic 122–176; BP diastolic 61–78
[2018-05-12] MEDS: ALBUTEROL/IPRATROPIUM 3 ML NEB NEB SCH ×4 (00:05→19:36)
--- NOTE | 2018-05-12 00:35 | NUR ---
PATIENT ASSISTED WITH ADLS, DIABETIC SNACKS GIVEN. CALL LIGHT WITHIN EASY REACH, INSTRUCTED TO CALL FOR ASSISTANCE NEEDED.
--- NOTE | 2018-05-12 04:47 | NUR ---
PATIENT ASSISTED TO THE BEDSIDE COMMODE, SHE'S NOW BACK IN BED WITH CALL LIGHT IN EASY REACH. PATIENT REQUESTED APPLE JUICE AND WATER, IT WAS PROVIDED SHE REQUESTED.
[2018-05-12 05:15] LABS: ANION GAP 11.9 mmol/L (8-16); CALCIUM 11.1 mg/dL (8.4-10.2); CREATININE, SERUM 1.29 mg/dL (0.57-1.11); POTASSIUM 3.9 mmol/L (3.5-5.1)
[2018-05-12] MEDS: LEVOTHYROXINE SODIUM 50 MCG TAB PO SCH (06:07)
[2018-05-12] MEDS: SYMLIN SC SCH ×2 (07:35→11:01)
[2018-05-12] MEDS: [UNRECOGNIZED DRUG - OTHER] PO SCH (07:35)
[2018-05-12] MEDS: INSULIN ASPART 70/30 100 UNITS/ML VIAL SC SCH (07:38)
[2018-05-12] MEDS: FERROUS SULFATE 325 MG TAB PO SCH (08:17)
[2018-05-12] MEDS: PANTOPRAZOLE SOD 40 MG TABEC PO SCH (08:17)
[2018-05-12] MEDS: ALLOPURINOL 300 MG TAB PO SCH (08:17)
[2018-05-12] MEDS: CINACALCET 30 MG TAB PO SCH (08:17)
[2018-05-12] MEDS: INSULIN GLARGINE 100 UNITS/ML VIAL SQ SCH ×2 (08:17→21:41)
[2018-05-12] MEDS: ESCITALOPRAM OXALATE 10 MG TAB PO SCH (08:17)
[2018-05-12] MEDS: CARVEDILOL 3.125 MG TAB PO SCH ×2 (08:17→15:53)
[2018-05-12] MEDS: TRIAMCINOLONE ACET 0.025% 15 GM CREAM TP SCH ×3 (08:17→21:41)
[2018-05-12] MEDS: FENOFIBRATE 145 MG TAB PO SCH (08:17)
[2018-05-12] MEDS: HYDRALAZINE HCL 25 MG TAB PO SCH ×3 (08:17→21:41)
[2018-05-12] MEDS: CEFEPIME 1GM/NS 0.9% 50 ML 50 ML IV SCH (09:13)
[2018-05-12] MEDS: FUROSEMIDE INJ 10 MG/ML 4 ML VIAL IV SCH ×2 (09:16→21:41)
--- NOTE | 2018-05-12 16:28 | Progress Note ---
DATE: Internal Medicine Progress Note SUBJECTIVE: The patient is doing well. OBJECTIVE: VITAL SIGNS: Blood pressure 139/63, temperature 98.6, heart rate 59 per minute, respiratory rate is 20 per minute, oxygen saturation 92%. HEART: Showed regular rhythm. No murmur or added sound. LUNGS: Clear bilaterally. ABDOMEN: Soft. LABORATORY DATA: BMP; sodium 138, potassium 3.9, chloride 104, CO2 of 26, BUN 41, creatinine 1.29, glucose 61. CBC; white blood count 4.31, hemoglobin 9.0, hematocrit 28.2, platelet count 238,000. AST 24, ALT 22, total bilirubin 0.3, alkaline phosphatase of 43. FINAL IMPRESSION: 1. Lobar pneumonia. 2. Chronic renal failure, stage 3. 3. Chronic diastolic congestive heart failure. 4. Hypertension with chronic renal insufficiency. 5. Hypertensive heart disease with congestive heart failure. 6. Morbid obesity. 7. Uncontrolled diabetes mellitus type 2 with current renal insufficiency. PLAN OF TREATMENT: Continue albuterol and Atrovent q.6 hours, vancomycin 1 g IV once a day, cefepime 1 g IV once a day. Continue Lexapro 20 mg daily, tramadol 50 mg twice a day as needed for pain, levothyroxine 50 mcg daily, triamcinolone cream three times a day, Tylenol 650 mg q.6 hours as needed, cinacalcet 30 mg daily, fenofibrate 145 mg daily, furosemide 40 mg twice a day, allopurinol 600 mg daily, ferrous sulfate 325 mg daily, Lantus 80 units twice a day. Continue to monitor blood sugar a.c. and h.s. Continue carvedilol 3.125 mg twice a day, hydralazine 100 mg three times a day, Protonix 40 mg daily, and continue with Humalog 50 units three times a day. MD RIRI Aragon/JAIDENL /[id number]
[2018-05-12] MEDS ORDERED: INSULIN LISPRO 100 UNIT/1 ML 3ML VIAL SQ SCH (16:30)
[2018-05-12] MEDS: INSULIN LISPRO 100 UNIT/1 ML 3ML VIAL SQ SCH ×3 (16:30→21:43)
--- NOTE | 2018-05-12 16:33 | Progress Note ---
DATE: ADDENDUM: The nurse have told me that she is running low blood sugars in the 40s and 60s. I am going hold on the insulin regimen as long as the blood sugar is less than 100 and then once it starts going beyond 100, we age going to decrease the Lantus to 60 units twice a day and start Humalog. We are going to discontinue the Humulin 70/30 and start her on Humalog in a lower dose, which is going to be 10 units before meals, but of course to be placed on hold if blood sugar was below 100. I want to consult Dr. Norwood, plant tech also. Continue diabetic diet. push as needed for blood sugar less than 60 of course. MD RIRI Aragon/MERCEDES /[id number]
--- NOTE | 2018-05-12 17:52 | NUR ---
Call placed to Dr. Barnett to inform of vanco trough at 16.9. Awaiting call back to inquire to give the vanco or hold it
--- NOTE | 2018-05-12 18:05 | NUR ---
Rcvd orders to give vanco
[2018-05-12] MEDS: VANCOMYCIN 1GM/NS 250 ML 250 ML IV SCH (18:22)
[2018-05-12] MEDS ORDERED: INSULIN GLARGINE 100 UNITS/ML VIAL SQ SCH (21:00)
--- NOTE | 2018-05-12 23:25 | NUR ---
PATIENT RESTING IN BED, NO RESPIRATORY DISTRESS OBSERVED. ASSISTED WITH ADLS, CALL LIGHT WITHIN EASY REACH, INSTRUCTED TO CALL FOR ASSISTANCE NEEDED.
[2018-05-13 00:39] VITALS: BP 157/61
[2018-05-13] MEDS: ALBUTEROL/IPRATROPIUM 3 ML NEB NEB SCH ×2 (01:20→07:28)
--- NOTE | 2018-05-13 02:15 | Consultation ---
DATE OF CONSULTATION: May 12, 2018 Endocrine Consultation. This is a patient of Dr. Barnett. Thank you very much for referring this patient. HISTORY OF PRESENT ILLNESS: This is a 68-year-old lady, who is referred to me for evaluation of uncontrolled diabetes mellitus and hypercalcemia. The patient reportedly is a known diabetic for the last several years, 8 to 10 years and takes combination of Toujeo 55 units at bedtime and Humalog 55 units with each meal. The patient came to the hospital with history of cough, chest congestion, and possible pneumonia. She also has history of obesity, obstructive pulmonary disease, hypertension, pneumonia, and reportedly came to the hospital with acute pulmonary edema. At the time of admission, her blood sugars were elevated. The patient also has history of hyperlipidemia for which she is on fenofibrate 145 mg a day. She is on iron tablets for anemia and she is on Synthroid 0.05 mg once daily. During the hospital stay, her calcium levels were also found to be elevated. PHYSICAL EXAMINATION: GENERAL: Today, the patient is alert, awake, little bit apprehensive. She is moderately overweight. VITAL SIGNS: Her heart rate is around 78, blood pressure 140/80 mmHg. HEENT: Essentially unremarkable. Thyroid is palpable. Clinically, she is euthyroid. CHEST: Bilateral vesicular breathing. She has bilateral bronchospasm. 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 She also has some cervical adenitis on the right side of the neck. CLINICAL IMPRESSION: Type diabetes mellitus type 2 uncontrolled with complications, chronic renal insufficiency, hypertension, pneumonia, and hypercalcemia. PLAN: At this time is adjust her insulin and monitor her blood sugars closely. We will also do a serum ionized calcium level as well. Thank you for referring this patient. I will follow this patient with you. MD MARIA G Moser/MERCEDES /[id number] PHU
--- NOTE | 2018-05-13 03:21 | NUR ---
PATIENT IS ASLEEP WITH HER C-PAP ON, SHE'S EASY TO AROUSE. SHE DENIES PAIN, ONE CUP OF APPLE JUICE GIVEN TO THE PATIENT. SHE WAS ASSISTED TO THE BEDSIDE COMMODE.
[2018-05-13 05:05] VITALS: BP 142/66
[2018-05-13 05:06] LABS: BASOPHILS % 0.9 % (0.0-1.0); HEMATOCRIT 27.5 % (34.2-44.1); LYMPHOCYTES # (AUTO) 1.5 (1.0-3.2); LYMPHOCYTES % 32.2 % (18.0-39.1); MEAN CORPUSCULAR HEMOGLOBIN 30.5 pg (28-32); MEAN CORPUSCULAR HGB CONC 32.7 g/dL (31-35); MEAN CORPUSCULAR VOLUME 93.2 fL (81-99); MONOCYTES # (AUTO) 0.6 (0.2-0.8); NEUTROPHILS # (AUTO) 2.4 (2.1-6.9); NEUTROPHILS % 52.2 % (38.7-80.0); PLATELET COUNT 242 x10e3/uL (140-360); RED BLOOD COUNT 2.95 x10e6/uL (3.6-5.1); RED CELL DISTRIBUTION WIDTH 15.5 % (11.7-14.4)
[2018-05-13 05:28] LABS: ALBUMIN 3.3 g/dL (3.5-5.0); ANION GAP 10.7 mmol/L (8-16); CALCIUM 11.1 mg/dL (8.4-10.2); CREATININE, SERUM 1.35 mg/dL (0.57-1.11); POTASSIUM 3.7 mmol/L (3.5-5.1)
[2018-05-13] MEDS: LEVOTHYROXINE SODIUM 50 MCG TAB PO SCH (06:07)
--- NOTE | 2018-05-13 06:24 | Diagnostic Imaging Report ---
EXAMINATION: CHEST SINGLE (PORTABLE) COMPARISON: Chest x-ray 05/11/2018 INDICATION: Shortness of breath ^bilateral pneumonia and CHF ^[id number] ^0550 ^Y DISCUSSION: Frontal view of the chest obtained at 0601 hours. HEART AND MEDIASTINUM: Stable cardiomegaly. Pulmonary vascular congestion is improving. LINES: None. LUNGS: Poor visualization of the left diaphragm is redemonstrated. No new findings in the right lung. PLEURA: No pneumothorax. BONES AND SOFT TISSUES: No focal osseous lesion. Right axillary vascular clips are stable. IMPRESSION: 1. Improved vascular congestion. 2. Continued opacification of the left diaphragm either due to atelectasis or infiltrate with small pleural effusion. 3. Stable cardiomegaly. Signed by: Dr. Viviane Garza MD on 05/13/2018 6:20 AM
[2018-05-13] MEDS: PANTOPRAZOLE SOD 40 MG TABEC PO SCH (07:30)
[2018-05-13] MEDS: INSULIN LISPRO 100 UNIT/1 ML 3ML VIAL SQ SCH ×2 (07:30)
[2018-05-13 08:00] VITALS: BP 142/66
[2018-05-13] MEDS: CEFEPIME 1GM/NS 0.9% 50 ML 50 ML IV SCH (08:00)
[2018-05-13 08:11] VITALS: BP 165/75
[2018-05-13] MEDS: CARVEDILOL 3.125 MG TAB PO SCH (09:00)
[2018-05-13] MEDS: TRIAMCINOLONE ACET 0.025% 15 GM CREAM TP SCH (09:00)
[2018-05-13] MEDS: INSULIN GLARGINE 100 UNITS/ML VIAL SQ SCH (09:00)
[2018-05-13] MEDS: FERROUS SULFATE 325 MG TAB PO SCH (09:00)
[2018-05-13] MEDS: ESCITALOPRAM OXALATE 10 MG TAB PO SCH (09:00)
[2018-05-13] MEDS: [UNRECOGNIZED DRUG - OTHER] PO SCH (09:00)
[2018-05-13] MEDS: HYDRALAZINE HCL 25 MG TAB PO SCH (09:00)
[2018-05-13] MEDS: CINACALCET 30 MG TAB PO SCH (09:00)
[2018-05-13] MEDS: ALLOPURINOL 300 MG TAB PO SCH (09:00)
[2018-05-13] MEDS: FENOFIBRATE 145 MG TAB PO SCH (09:00)
[2018-05-13] MEDS: FUROSEMIDE INJ 10 MG/ML 4 ML VIAL IV SCH (09:00)
--- NOTE | 2018-05-13 09:37 | NUR ---
IMM letter delivered and explained to pt. signed copy in chart. Copy to patient. pt provided with [place]ican copy. Anticipate discharge today.
[2018-05-13] MEDS ORDERED: LEVAQUIN500 MG PO (10:39)
[2018-05-13] MEDS ORDERED: SYNTHROID50 MCG PO (10:40)
--- NOTE | 2018-05-13 11:15 | NUR ---
pt went home in safe condition with her
--- NOTE | 2018-05-14 10:13 | Discharge Summary ---
ADMIT DIAGNOSES: 1. Sepsis secondary to bilateral pneumonia. 2. Right periauricular/facial cellulitis. 3. Acute on chronic diastolic congestive heart failure. 4. Acute on chronic renal failure. 5. Hypertensive heart disease. 6. Chronic bronchitis. 7. Type 2 diabetes mellitus. 8. Obstructive sleep apnea. 9. Anemia secondary to chronic kidney disease. DISCHARGE DIAGNOSES: 1. Sepsis secondary to bilateral pneumonia, resolved. 2. Left lower lobe pneumonia, likely gram-negative janice, resolving. 3. Right periauricular/facial cellulitis, resolved. 4. Acute on chronic diastolic congestive heart failure, resolving. 5. Acute on chronic renal failure, resolved. 6. Stage 3 chronic kidney disease. 7. Hypertensive heart disease. 8. Chronic bronchitis. 9. Type 2 diabetes mellitus with neuropathy. 10. Obstructive sleep apnea. 11. Anemia secondary to chronic kidney disease. 12. Extreme obesity (calculated body mass index 49), complicating underlying diabetes mellitus and obstructive sleep apnea. HOSPITAL COURSE: This is a 68-year-old woman who was initially admitted to [facility] with a diagnosis of sepsis secondary to bilateral pneumonia. She was also found to have right periauricular/right facial cellulitis. The patient's pneumonia and facial cellulitis improved with intravenous antibiotics, namely cefepime and vancomycin, which she tolerated quite well. The patient had blood culture done on this hospitalization, which did not reveal any bacterial growth. The patient also had sputum culture done during this hospitalization that revealed few gram-positive cocci in pairs and chains as well as rare gram-negative bacilli. The patient also underwent echocardiogram during this hospitalization, which revealed a left ventricular ejection fraction of 54% and findings consistent with diastolic heart failure, namely concentric left ventricular hypertrophy and elevated right ventricular systolic pressure. The patient was diagnosed with acute on chronic renal failure during this hospitalization. The patient's renal failure seemed to improve with intravenous fluids and then later intravenous furosemide. On admission, the patient's BUN and creatinine were 80 and 2.16 respectively. On day of discharge, the patient's BUN and creatinine were 42 and 1.35 respectively. On admission, the patient was found to have a white blood cell count of 13,300 with 84% segmented neutrophils. On day of discharge, white blood cell count was 4500 with 52% segmented neutrophils. On day of discharge, hemoglobin was 9 g/dL, but this is near her baseline. She did receive physical therapy during this hospitalization. The patient did use her CPAP machine every night because of her obstructive sleep apnea. The patient was seen by Nephrology during this hospitalization, namely Dr. Marycruz Caraballo. She was also seen by Cardiology during this hospitalization, namely Dr. Zuly Collins. The patient's hospitalization was unremarkable. Her condition on discharge was stable. DISCHARGE MEDICATIONS: 1. Levofloxacin 250 mg by mouth daily for 7 more days. 2. Furosemide 40 mg b.i.d. 3. Triamcinolone 0.025% cream applied to affected area 3 times a day as needed. 4. Fenofibrate 145 mg daily. 5. Hydralazine 100 mg t.i.d. 6. Ferrous sulfate 325 mg daily. 7. Lexapro 20 mg daily. 8. Sensipar 30 mg daily. 9. Carvedilol 3.25 mg b.i.d. 10. Allopurinol 300 mg daily. 11. Pantoprazole 40 mg daily. 12. Albuterol/ipratropium nebulized treatments every 6 hours as needed for shortness of breath or wheezing. 13. Levothyroxine 50 mcg daily. 14. Toujeo insulin 55 units once a day. 15. NovoLog insulin 12 units 3 times a day with meals. 16. Tramadol 50 mg b.i.d. p.r.n., pain. 17. Nephro-Butch 1 daily. 18. Vitamin D3, 2000 units daily. 19. Linaclotide or Linzess 145 mcg daily. 20. Amlodipine 10 mg twice a day. We are going to hold off losartan and then we are going to stop SymlinPen. FOLLOWUP: The patient is instructed to follow up with Cardiology in 1 week and with her primary care physician and with Dr. Alan Flores in 2 weeks. MD BARBI Tello/MERCEDES /[id number]
== END 2018-05-13 11:51 | disposition home or self-care (01) | DRG 871 ==
LOC: FSED 15:41 → ERHOLD 17:37 → MED/SURG2 23:54
PROVIDERS: ADMIT Internal Medicine; ATTEND Internal Medicine
DX: A41.9 Sepsis, unspecified organism (principal); I50.33 Acute on chronic diastolic (congestive) heart failure; I13.0 Hypertensive heart and chronic kidney disease with heart failure and stage 1 through stage 4 chronic kidney disease, or unspecified chronic kidney disease; N18.4 Chronic kidney disease, stage 4 (severe); Z68.42 Body mass index [BMI] 45.0-49.9, adult; N17.9 Acute kidney failure, unspecified; L03.211 Cellulitis of face; E11.22 Type 2 diabetes mellitus with diabetic chronic kidney disease; Z79.4 Long term (current) use of insulin; J42 Unspecified chronic bronchitis; E66.01 Morbid (severe) obesity due to excess calories; Z85.3 Personal history of malignant neoplasm of breast; G47.33 Obstructive sleep apnea (adult) (pediatric); D63.1 Anemia in chronic kidney disease; E11.42 Type 2 diabetes mellitus with diabetic polyneuropathy; E03.9 Hypothyroidism, unspecified; I87.2 Venous insufficiency (chronic) (peripheral); I25.10 Atherosclerotic heart disease of native coronary artery without angina pectoris; B86 Scabies; E11.649 Type 2 diabetes mellitus with hypoglycemia without coma
CPT/HCPCS: 36415; 71045; 71046; 80048; 80053; 80061; 80202; 82330; 82553; 82948; 83735; 83880; 84443; 84484; 85025; 87040; 87070; 87205; 87400; 93005; 93306; 94640; 96361; 96372; 96376; 97139; 99284; J0692; J0696; J1815; J1940; J3370; J7030

== ENCOUNTER → 2018-08-30 | Outpatient (CLI) | payer MEDICARE ==
[~2018-08-30] MED LIST changes: +ALLOPURINOL300 MG PO; +AMLODIPINE BESY10 MG PO; +HYDRALAZINE HCL25 MG PO; +LEVAQUIN500 MG PO; +LEXAPRO10 MG PO; +LOSARTAN POTAS100 MG PO; +PANTOPRAZOLE SO40 MG PO; +SENSIPAR30 MG PO; +SYNTHROID50 MCG PO; +ULTRAM50 MG PO; +VITAMIN D1000 UNI1 PO; +vascepa PO
--- NOTE | 2018-08-30 12:26 | Diagnostic Imaging Report ---
EXAM: CHEST 2 VIEWS, PA and lateral DATE: 08/30/2018 Time stamp on exam: 11:46 AM INDICATION: Pneumonia COMPARISON: 05/13/2018 FINDINGS: LINES/TUBES: Multiple right axillary/chest wall clips. LUNGS: No consolidations. Mild pulmonary vascular congestion. PLEURA: No effusions or pneumothorax. HEART AND MEDIASTINUM: Cardiac silhouette is significantly enlarged. BONES AND SOFT TISSUES: No acute findings. Degenerative changes of the spine. IMPRESSION: Cardiomegaly with pulmonary vascular congestion. Signed by: Dr. Eddie Valiente DO on 08/30/2018 12:23 PM
== END ==
LOC: RAD 11:27
PROVIDERS: ATTEND Internal Medicine
DX: J15.9 Unspecified bacterial pneumonia (principal)
CPT/HCPCS: 71046

== ENCOUNTER → 2019-02-04 | Outpatient (CLI) | payer MEDICARE, OTHER ==
--- NOTE | 2019-02-04 19:01 | Diagnostic Imaging Report ---
Parathyroid Scan with SPECT Reason for exam: E21.0: Primary hyperparathyroidism Radiopharmaceutical: Tc-99m sestamibi 27.5 mCi After intravenous administration of the radiopharmaceutical, immediate tomographic images of the neck and upper chest were obtained. Two-hour planar images of the neck and upper chest were also obtained. Distribution of tracer activity appears physiologic throughout the neck and upper chest on the planar and tomographic images. No focal areas of increased tracer accumulation are identified. On the delayed planar images, washout of tracer from the thyroid is complete with no focal areas of persistent tracer activity. Impression: No enlarged hypermetabolic parathyroid glands are identified. Signed by: Dr. Lilly Piedra M.D. on 02/04/2019 6:57 PM
== END ==
LOC: NM 11:44
PROVIDERS: ATTEND Internal Medicine Nephrology
DX: E21.0 Primary hyperparathyroidism (principal)
CPT/HCPCS: 78071

== ENCOUNTER → 2020-07-06 | Outpatient (CLI) | payer BC | LOC: RAD 14:54 | PROVIDERS: ATTEND Internal Medicine | DX: S70.02XA Contusion of left hip, initial encounter (principal) ==

== ENCOUNTER 2020-10-03 19:23 | Inpatient (IN) | payer MEDICARE, BC ==
[~2020-10-03] VITALS: Ht 157.5 cm; Wt 117.9 kg
[2020-10-03 20:09] LABS: BASOPHILS % 0.6 % (0.0-1.0); HEMATOCRIT 33.8 % (34.2-44.1); HEMOGLOBIN 10.7 g/dL (12.0-16.0); LYMPHOCYTES # (AUTO) 1.7 (1.0-3.2); LYMPHOCYTES % 25.5 % (18.0-39.1); MEAN CORPUSCULAR HEMOGLOBIN 29.1 pg (28-32); MEAN CORPUSCULAR HGB CONC 31.7 g/dL (31-35); MEAN CORPUSCULAR VOLUME 91.8 fL (81-99); MONOCYTES # (AUTO) 0.7 (0.2-0.8); MONOCYTES % 9.6 % (4.4-11.3); NEUTROPHILS # (AUTO) 4.3 (2.1-6.9); PLATELET COUNT 285 x10e3/uL (140-360); RED BLOOD COUNT 3.68 x10e6/uL (3.6-5.1); RED CELL DISTRIBUTION WIDTH 15.9 % (11.7-14.4)
[2020-10-03 20:27] LABS: ALBUMIN 2.7 g/dL (3.5-5.0); ALBUMIN/GLOBULIN RATIO 0.8 (0.8-2.0); ANION GAP 15.7 mmol/L (8-16); CREATININE, SERUM 2.65 mg/dL (0.57-1.11); POTASSIUM 3.7 mmol/L (3.5-5.1)
[2020-10-03 20:34] LABS: CREATINE KINASE MB 2.2 ng/mL (0-5.0)
[2020-10-03 20:36] LABS: CALCIUM 7.7 mg/dL (8.4-10.2)
[2020-10-03] MEDS ORDERED: FUROSEMIDE INJ 10 MG/ML 4 ML VIAL IV ONE (21:15)
[2020-10-03] MEDS ORDERED: ACETAMINOPHEN 325 MG TAB PO PRN (22:00)
[2020-10-03] MEDS ORDERED: HYDRALAZINE HCL 20 MG/ML VIAL IV PRN (22:30)
[2020-10-03] MEDS ORDERED: DEXTROSE 50% SYRINGE 50 ML IV PRN (23:00)
[2020-10-04] VITALS (7 sets, daily range): BP systolic 146–162; BP diastolic 60–76
[2020-10-04] MEDS ORDERED: CLONIDINE HCL 0.2 MG TAB PO ONE (02:00)
[2020-10-04] MEDS ORDERED: LEVOTHYROXINE SODIUM 100 MCG TAB PO SCH (06:00)
[2020-10-04] MEDS ORDERED: INSULIN LISPRO 100 UNIT/1 ML 3ML VIAL SQ SCH ×2 (07:30→11:30)
[2020-10-04 07:36] LABS: CREATINE KINASE MB 1.4 ng/mL (0-5.0)
[2020-10-04] MEDS: INSULIN LISPRO 100 UNIT/1 ML 3ML VIAL SQ SCH ×5 (07:42→20:55)
[2020-10-04 08:58] LABS: BASOPHILS % 0.4 % (0.0-1.0); EOSINOPHILS # (AUTO) 0.2 (0.0-0.4); EOSINOPHILS % 2.4 % (0.0-6.0); HEMATOCRIT 35.1 % (34.2-44.1); LYMPHOCYTES # (AUTO) 1.6 (1.0-3.2); LYMPHOCYTES % 24.2 % (18.0-39.1); MEAN CORPUSCULAR HEMOGLOBIN 28.9 pg (28-32); MEAN CORPUSCULAR HGB CONC 31.3 g/dL (31-35); MEAN CORPUSCULAR VOLUME 92.4 fL (81-99); MONOCYTES # (AUTO) 0.6 (0.2-0.8); MONOCYTES % 8.5 % (4.4-11.3); NEUTROPHILS # (AUTO) 4.3 (2.1-6.9); NEUTROPHILS % 64.1 % (38.7-80.0); PLATELET COUNT 265 x10e3/uL (140-360)
[2020-10-04] MEDS ORDERED: FUROSEMIDE INJ 10 MG/ML 4 ML VIAL IV SCH (09:00)
[2020-10-04] MEDS ORDERED: INSULIN GLARGINE 100 UNITS/ML VIAL SQ SCH (09:00)
[2020-10-04] MEDS: AMLODIPINE BESYLATE 10 MG TAB PO SCH (09:05)
[2020-10-04] MEDS ORDERED: FUROSEMIDE INJ 10 MG/ML 4 ML VIAL IV ONE (09:30)
[2020-10-04 09:41] LABS: ALBUMIN 2.5 g/dL (3.5-5.0); ALBUMIN/GLOBULIN RATIO 0.7 (0.8-2.0); ANION GAP 16.4 mmol/L (8-16); CALCIUM 8.1 mg/dL (8.4-10.2); CREATININE, SERUM 2.27 mg/dL (0.57-1.11); POTASSIUM 3.4 mmol/L (3.5-5.1)
[2020-10-04] MEDS ORDERED: NOVOLOG100 UNIT/1 SC (10:08)
[2020-10-04] MEDS ORDERED: VITAMIN B-121000 MC2 PO (10:08)
[2020-10-04] MEDS ORDERED: MULTI-VITAMIN1 EACH PO (10:08)
[2020-10-04] MEDS ORDERED: SENSIPAR30 MG PO (10:08)
[2020-10-04] MEDS ORDERED: LINZESS145 MCG PO (10:08)
[2020-10-04] MEDS ORDERED: ACETAMINOPHEN325 M1 PO (10:08)
[2020-10-04] MEDS ORDERED: ALLERGY RELIEF10 M4 PO (10:08)
[2020-10-04] MEDS ORDERED: COREG12.5 MG PO (10:08)
[2020-10-04] MEDS ORDERED: VENLAFAXINE HCL75 MG PO (10:08)
[2020-10-04] MEDS: INSULIN GLARGINE 100 UNITS/ML VIAL SQ SCH ×2 (12:02→20:55)
[2020-10-04 13:43] LABS: CREATINE KINASE MB 1.6 ng/mL (0-5.0)
[2020-10-04] MEDS: FUROSEMIDE INJ 10 MG/ML 4 ML VIAL IV SCH ×2 (14:53→23:24)
[2020-10-04] MEDS: HYDRALAZINE HCL 100 MG TABLET PO SCH ×2 (15:13→21:26)
[2020-10-04] MEDS: CARVEDILOL 3.125 MG TAB PO SCH (17:05)
[2020-10-05] VITALS (7 sets, daily range): BP systolic 130–191; BP diastolic 54–96
[2020-10-05] MEDS: TRAMADOL HCL 50 MG TAB PO PRN (01:58)
[2020-10-05 04:50] LABS: BASOPHILS % 0.3 % (0.0-1.0); HEMATOCRIT 35.5 % (34.2-44.1); HEMOGLOBIN 11.4 g/dL (12.0-16.0); LYMPHOCYTES # (AUTO) 1.6 (1.0-3.2); LYMPHOCYTES % 22.2 % (18.0-39.1); MEAN CORPUSCULAR HEMOGLOBIN 29.1 pg (28-32); MEAN CORPUSCULAR HGB CONC 32.1 g/dL (31-35); MEAN CORPUSCULAR VOLUME 90.6 fL (81-99); MONOCYTES # (AUTO) 0.6 (0.2-0.8); MONOCYTES % 8.3 % (4.4-11.3); NEUTROPHILS % 68.8 % (38.7-80.0); PLATELET COUNT 297 x10e3/uL (140-360); RED BLOOD COUNT 3.92 x10e6/uL (3.6-5.1); RED CELL DISTRIBUTION WIDTH 15.9 % (11.7-14.4)
[2020-10-05 05:17] LABS: ALBUMIN 2.4 g/dL (3.5-5.0); ALBUMIN/GLOBULIN RATIO 0.6 (0.8-2.0); ANION GAP 14.4 mmol/L (8-16); CALCIUM 8.6 mg/dL (8.4-10.2); CREATININE, SERUM 2.39 mg/dL (0.57-1.11); POTASSIUM 3.4 mmol/L (3.5-5.1)
[2020-10-05 05:52] LABS: CHOL/HDL RATIO 4.9 (3.0-3.6)
[2020-10-05] MEDS: LEVOTHYROXINE SODIUM 50 MCG TAB PO SCH (06:47)
[2020-10-05] MEDS: FUROSEMIDE INJ 10 MG/ML 4 ML VIAL IV SCH ×3 (06:47→22:39)
[2020-10-05] MEDS: INSULIN LISPRO 100 UNIT/1 ML 3ML VIAL SQ SCH ×7 (07:30→22:39)
[2020-10-05] MEDS: INSULIN GLARGINE 100 UNITS/ML VIAL SQ SCH (09:00)
[2020-10-05] MEDS ORDERED: AMLODIPINE BESYLATE 10 MG TAB PO SCH (09:00)
[2020-10-05] MEDS: AMLODIPINE BESYLATE 10 MG TAB PO SCH ×2 (11:12→11:37)
[2020-10-05] MEDS: ESCITALOPRAM OXALATE 10 MG TAB PO SCH (11:35)
[2020-10-05] MEDS: ASPIRIN 81 MG ENTERIC COATED PO SCH (11:36)
[2020-10-05] MEDS: CHOLECALCIFEROL 1,000 UNIT TAB PO SCH (11:36)
[2020-10-05] MEDS: PANTOPRAZOLE SOD 40 MG TABEC PO SCH (11:37)
[2020-10-05] MEDS: CARVEDILOL 3.125 MG TAB PO SCH ×2 (11:38→18:20)
[2020-10-05] MEDS: FERROUS SULFATE 325 MG TAB PO SCH (11:38)
[2020-10-05] MEDS: HYDRALAZINE HCL 100 MG TABLET PO SCH ×3 (11:38→22:39)
[2020-10-05] MEDS: ALLOPURINOL 300 MG TAB PO SCH (11:38)
[2020-10-05] MEDS: CINACALCET 30 MG TAB PO SCH (11:40)
[2020-10-05] MEDS: Fenofibrate 160 MG PO SCH (11:52)
[2020-10-05] MEDS: POTASSIUM CHLORIDE 10MEQ EA PO ONE ×2 (11:55→11:58)
[2020-10-05] MEDS ORDERED: POTASSIUM CHLORIDE 10MEQ EA PO ONE (12:00)
[2020-10-05] MEDS ORDERED: TRESIBA FL200 UNIT/1 SC (19:33)
[2020-10-06] VITALS (7 sets, daily range): BP systolic 134–164; BP diastolic 62–83
[2020-10-06 04:49] LABS: BASOPHILS % 0.3 % (0.0-1.0); LYMPHOCYTES # (AUTO) 1.8 (1.0-3.2); LYMPHOCYTES % 28.6 % (18.0-39.1); MEAN CORPUSCULAR HEMOGLOBIN 29.3 pg (28-32); MEAN CORPUSCULAR HGB CONC 31.4 g/dL (31-35); MEAN CORPUSCULAR VOLUME 93.1 fL (81-99); MONOCYTES # (AUTO) 0.5 (0.2-0.8); MONOCYTES % 8.7 % (4.4-11.3); NEUTROPHILS # (AUTO) 3.9 (2.1-6.9); NEUTROPHILS % 62.2 % (38.7-80.0); PLATELET COUNT 279 x10e3/uL (140-360); RED BLOOD COUNT 3.76 x10e6/uL (3.6-5.1); RED CELL DISTRIBUTION WIDTH 16.1 % (11.7-14.4)
[2020-10-06 05:10] LABS: ANION GAP 15.4 mmol/L (8-16); CALCIUM 8.1 mg/dL (8.4-10.2); CREATININE, SERUM 2.74 mg/dL (0.57-1.11); POTASSIUM 3.4 mmol/L (3.5-5.1)
[2020-10-06] MEDS: LEVOTHYROXINE SODIUM 50 MCG TAB PO SCH (06:35)
[2020-10-06] MEDS: FUROSEMIDE INJ 10 MG/ML 4 ML VIAL IV SCH ×2 (06:35→16:55)
[2020-10-06] MEDS: INSULIN LISPRO 100 UNIT/1 ML 3ML VIAL SQ SCH ×7 (07:28→21:08)
[2020-10-06] MEDS ORDERED: POTASSIUM CHLORIDE 10MEQ EA PO ONE ×2 (07:30→09:30)
[2020-10-06] MEDS: ASPIRIN 81 MG ENTERIC COATED PO SCH (08:31)
[2020-10-06] MEDS: CHOLECALCIFEROL 1,000 UNIT TAB PO SCH (08:32)
[2020-10-06] MEDS: PANTOPRAZOLE SOD 40 MG TABEC PO SCH (08:32)
[2020-10-06] MEDS: HYDRALAZINE HCL 100 MG TABLET PO SCH ×3 (08:32→19:34)
[2020-10-06] MEDS: AMLODIPINE BESYLATE 10 MG TAB PO SCH (08:32)
[2020-10-06] MEDS: CINACALCET 30 MG TAB PO SCH (08:32)
[2020-10-06] MEDS: ESCITALOPRAM OXALATE 10 MG TAB PO SCH (08:32)
[2020-10-06] MEDS: FERROUS SULFATE 325 MG TAB PO SCH (08:32)
[2020-10-06] MEDS: ALLOPURINOL 300 MG TAB PO SCH (08:32)
[2020-10-06] MEDS: CARVEDILOL 3.125 MG TAB PO SCH ×2 (08:32→16:55)
[2020-10-06] MEDS: Fenofibrate 160 MG PO SCH (08:33)
[2020-10-06] MEDS: TRAMADOL HCL 50 MG TAB PO PRN ×2 (08:48→19:34)
[2020-10-06] MEDS ORDERED: TRESIBA SC SCH (09:00)
[2020-10-07] VITALS: BP 145/68
[2020-10-07 04:00] VITALS: BP 122/65
[2020-10-07 04:47] LABS: BASOPHILS % 0.6 % (0.0-1.0); EOSINOPHILS # (AUTO) 0.1 (0.0-0.4); EOSINOPHILS % 2.1 % (0.0-6.0); HEMOGLOBIN 10.6 g/dL (12.0-16.0); LYMPHOCYTES # (AUTO) 2.1 (1.0-3.2); LYMPHOCYTES % 33.3 % (18.0-39.1); MEAN CORPUSCULAR HGB CONC 31.2 g/dL (31-35); MEAN CORPUSCULAR VOLUME 92.9 fL (81-99); MONOCYTES # (AUTO) 0.7 (0.2-0.8); MONOCYTES % 10.8 % (4.4-11.3); NEUTROPHILS # (AUTO) 3.3 (2.1-6.9); NEUTROPHILS % 52.7 % (38.7-80.0); PLATELET COUNT 291 x10e3/uL (140-360); RED BLOOD COUNT 3.66 x10e6/uL (3.6-5.1); RED CELL DISTRIBUTION WIDTH 16.3 % (11.7-14.4)
[2020-10-07 05:13] LABS: CALCIUM 8.2 mg/dL (8.4-10.2); CREATININE, SERUM 2.81 mg/dL (0.57-1.11)
[2020-10-07] MEDS: FUROSEMIDE INJ 10 MG/ML 4 ML VIAL IV SCH (05:49)
[2020-10-07] MEDS: LEVOTHYROXINE SODIUM 50 MCG TAB PO SCH (05:49)
[2020-10-07 07:37] VITALS: BP 128/65
[2020-10-07] MEDS: INSULIN LISPRO 100 UNIT/1 ML 3ML VIAL SQ SCH ×2 (07:48→07:49)
[2020-10-07 08:01] VITALS: BP 128/65
[2020-10-07] MEDS ORDERED: ENOXAPARIN SOD INJ 40 MG/0.4 ML SYR SC SCH (09:00)
== END 2020-10-07 10:33 | disposition home health service (06) | DRG 291 ==
LOC: ER 19:57 → ERHOLD 20:57 → OBSVTOIN 10-04 09:53 → IMCU 10-04 14:32
PROVIDERS: ADMIT Internal Medicine; ATTEND Internal Medicine
DX: I13.0 Hypertensive heart and chronic kidney disease with heart failure and stage 1 through stage 4 chronic kidney disease, or unspecified chronic kidney disease (principal); I50.33 Acute on chronic diastolic (congestive) heart failure; N18.4 Chronic kidney disease, stage 4 (severe); N25.81 Secondary hyperparathyroidism of renal origin; Z68.42 Body mass index [BMI] 45.0-49.9, adult; N17.9 Acute kidney failure, unspecified; G47.33 Obstructive sleep apnea (adult) (pediatric); E11.22 Type 2 diabetes mellitus with diabetic chronic kidney disease; Z79.899 Other long term (current) drug therapy; E03.9 Hypothyroidism, unspecified; E11.42 Type 2 diabetes mellitus with diabetic polyneuropathy; I87.2 Venous insufficiency (chronic) (peripheral); Z85.3 Personal history of malignant neoplasm of breast; E66.01 Morbid (severe) obesity due to excess calories; J44.9 Chronic obstructive pulmonary disease, unspecified; E78.00 Pure hypercholesterolemia, unspecified; G47.30 Sleep apnea, unspecified; Z91.19 Patient's noncompliance with other medical treatment and regimen; D63.1 Anemia in chronic kidney disease; I25.10 Atherosclerotic heart disease of native coronary artery without angina pectoris; M19.90 Unspecified osteoarthritis, unspecified site; F32.9 Major depressive disorder, single episode, unspecified; Z20.822 Contact with and (suspected) exposure to COVID-19
CPT/HCPCS: 36415; 51700; 71045; 80048; 80053; 80061; 82550; 82553; 82948; 83036; 83880; 84443; 84484; 85025; 93005; 93306; 99284; G0378; J0360; J1650; J1815; J1940; U0002

== ENCOUNTER 2021-04-12 05:41 | Observation (INO) | payer MEDICARE, BC ==
[~2021-04-12] VITALS: Ht 157.5 cm; Wt 123.4 kg
[~2021-04-12 05:41] MED LIST changes: +ACETAMINOPHEN325 M1 PO; +ALLERGY RELIEF10 M4 PO; +COREG12.5 MG PO; +LINZESS145 MCG PO; +MULTI-VITAMIN1 EACH PO; +NOVOLOG100 UNIT/1 SC; +TRESIBA FL200 UNIT/1 SC; +VENLAFAXINE HCL75 MG PO; +VITAMIN B-121000 MC2 PO
[2021-04-12] MEDS ORDERED: DEXTROSE 10% 1,000 ML IV ONE ×2 (06:00→06:11)
[2021-04-12 06:06] LABS: BASOPHILS % 0.5 % (0.0-1.0); HEMATOCRIT 31.5 % (34.2-44.1); HEMOGLOBIN 9.8 g/dL (12.0-16.0); LYMPHOCYTES # (AUTO) 1.3 (1.0-3.2); LYMPHOCYTES % 21.9 % (18.0-39.1); MEAN CORPUSCULAR HEMOGLOBIN 30.5 pg (28-32); MEAN CORPUSCULAR HGB CONC 31.1 g/dL (31-35); MEAN CORPUSCULAR VOLUME 98.1 fL (81-99); MONOCYTES # (AUTO) 0.7 (0.2-0.8); MONOCYTES % 11.7 % (4.4-11.3); NEUTROPHILS % 65.4 % (38.7-80.0); PLATELET COUNT 211 x10e3/uL (140-360); RED BLOOD COUNT 3.21 x10e6/uL (3.6-5.1); RED CELL DISTRIBUTION WIDTH 16.8 % (11.7-14.4)
[2021-04-12 07:20] LABS: ANION GAP 14.5 mmol/L (8-16); CALCIUM 8.5 mg/dL (8.4-10.2); CREATININE, SERUM 2.28 mg/dL (0.57-1.11); POTASSIUM 3.5 mmol/L (3.5-5.1)
[2021-04-12 09:12] VITALS: BP 119/65
[2021-04-12 09:39] VITALS: BP 119/65
[2021-04-12 12:28] VITALS: BP 153/64
[2021-04-12] MEDS ORDERED: DEXTROSE 50% SYRINGE 50 ML IV PRN (13:45)
[2021-04-12] MEDS ORDERED: INSULIN LISPRO 100 UNIT/1 ML 3ML VIAL SQ SCH ×2 (16:30→17:30)
[2021-04-12 16:53] VITALS: BP 156/54
[2021-04-12 20:05] VITALS: BP 145/59
== END 2021-04-12 20:29 | disposition home or self-care (01) ==
LOC: ER 05:45 → ERHOLD 07:20 → MED/SURG2 08:40
PROVIDERS: ADMIT Internal Medicine; ATTEND Internal Medicine
DX: T38.3X1A Poisoning by insulin and oral hypoglycemic [antidiabetic] drugs, accidental (unintentional), initial encounter (principal); E11.649 Type 2 diabetes mellitus with hypoglycemia without coma; E03.9 Hypothyroidism, unspecified; E11.22 Type 2 diabetes mellitus with diabetic chronic kidney disease; I12.9 Hypertensive chronic kidney disease with stage 1 through stage 4 chronic kidney disease, or unspecified chronic kidney disease; N18.4 Chronic kidney disease, stage 4 (severe); E66.9 Obesity, unspecified; Y92.019 Unspecified place in single-family (private) house as the place of occurrence of the external cause; Z79.4 Long term (current) use of insulin; Z68.42 Body mass index [BMI] 45.0-49.9, adult; Z20.822 Contact with and (suspected) exposure to COVID-19
CPT/HCPCS: 36415; 80048; 82948; 85025; 94799; 97116; 97161; 97530; 99284; G0378; U0002